=== PATIENT | female | born 1995 | race American Indian/Alaskan Native ===

== ENCOUNTER 2021-04-10 10:19 | Emergency (ER) | payer BC ==
--- NOTE | 2021-04-10 17:12 | Emergency Department Report ---
ED General Adult HPI - General Chief complaint: Neuro Symptoms/Deficit Stated complaint: FEET NUMBNESS/TINGLING PUI?: No Time Seen by Provider: 04/10/21 16:54 Source: patient, RN notes reviewed Mode of arrival: Ambulatory Limitations: No Limitations - History of Present Illness Initial comments: The patient was evaluated in the emergency department for symptoms described in the history of present illness. He/she was evaluated in the context of the global COVID-19 pandemic, which necessitated consideration that the patient m ight be at risk for infection with the virus that causes COVID-19. Institutional protocols and algorithms that pertain to the evaluation of patients at risk for COVID-19 are in a state of rapid change based on information released by regulatory bodies including the CDC and federal and state organizations. These policies and algorithms were followed during the patient's care in the emergency department. Please note that these policies, procedures and recommendations changed on a rapid basis. Primary CARE doctor: Penelope Meeks The patient is a 25-year-old female. She is not known to myself previously. She reports that she is not . She denies chronic medical history, with the exception of daily cannabis use and scoliosis. She has a very distant history of trichomoniasis in 2013. She reports that she is sexually active with one male partner, monogamous, and does not use barrier protection. The patient presents to the ER today with a primary complaint of painless tingling in her bilateral feet and forearms. Today is day 3/4 of symptoms. She states that the sensation of tingling started on her bilateral great toes, moved onto the bilateral plantar aspects of her feet, then moved to the lateral aspects of her bilateral lower extremities, moved approximately, and then onto the medial side of her thighs. Then, yesterday, she developed subjective sensation of tingling in her bilateral forearms, while sparing the hands, and arms. She denies headache, neck pain, chest pain, abdominal pain, shortness of breath, dysuria, bladder or bowel retention, incontinence, saddle anesthesia, and intravenous drug use. She does endorse a painless hyperpigmentation and rash on the bilateral plantar aspect of her feet, and great toes. She denies joint pain, sore throat, and fever. -: Gradual, days(s) Location: left, right, upper extremity, lower extremity Radiation: extremity Consistency: intermittent Improves with: none Worsens with: none Associated Symptoms: denies other symptoms, rash - Related Data Allergies Allergy/AdvReac Type Severity Reaction Status Date / Time No Known Allergies Allergy Unverified 04/10/21 10:48 ED Review of Systems ROS: Stated complaint: FEET NUMBNESS/TINGLING Other details as noted in HPI Comment: All other systems reviewed and negative Skin: rash Neurological: numbness ED Past Medical Hx - Past Medical History Additional medical history: SCOLIOSIS - Surgical History Additional Surgical History: SCOLIOSIS ED Physical Exam - General Limitations: No Limitations General appearance: alert, in no apparent distress - Head Head exam: Present: atraumatic, normocephalic - Eye Eye exam: Present: normal appearance, PERRL, EOMI, other (Visual acuity intact to finger counting, color perception, reading at a close distance). Absent: nystagmus - ENT ENT exam: Present: normal exam, normal orophraynx, mucous membranes moist, normal external ear exam - Neck Neck exam: Present: normal inspection, full ROM. Absent: tenderness, meningismus - Respiratory Respiratory exam: Present: normal lung sounds bilaterally. Absent: respiratory distress, wheezes, rales, rhonchi, stridor, accessory muscle use, decreased breath sounds, prolonged expiratory - Cardiovascular Cardiovascular Exam: Present: regular rate, normal rhythm, normal heart sounds. Absent: bradycardia, tachycardia, irregular rhythm, systolic murmur, diastolic murmur, rubs, gallop - GI/Abdominal GI/Abdominal exam: Present: soft. Absent: distended, tenderness, guarding, rebound, rigid, pulsatile mass - Extremities Exam Extremities exam: Present: normal inspection, full ROM, other (2+ pulses noted in the bilateral upper and lower extremities. There is no palpable cord. negative Homans sign. Muscular compartments are soft. The pelvis is stable.). Absent: pedal edema, calf tenderness - Back Exam Back exam: Present: normal inspection, full ROM. Absent: tenderness, CVA tenderness (R), CVA tenderness (L), paraspinal tenderness, vertebral tenderness - Neurological Exam Neurological exam: Present: alert, oriented X3, normal gait, reflexes normal (Downgoing plantar reflexes bilaterally.), other (No facial droop. Tongue midline. Extraocular movements intact bilaterally. Facial sensation intact to light touch in V1, V2, V3 distribution bilaterally. 5 and a 5 strength in 4 extremities. Sensation intact to light touch in 4 extremities.). Absent: motor sensory deficit (Sensation is intact to light touch, pinch and proprioception in the bilateral upper and lower extremities) - Psychiatric Psychiatric exam: Present: normal affect, normal mood - Skin Skin exam: Present: warm, dry, intact, normal color, other (On the bilateral plantar aspect of the great toe, and plantar aspect of the distal feet, hyperpigmented macules noted, approximately 2 to 3 per foot. They are nontender. They are not on the hand.). Absent: rash ED Course Vital Signs 04/10/21 10:49 Temperature 99.6 F Pulse Rate 77 Respiratory 18 Rate Blood Pressure 141/74 O2 Sat by Pulse 99 Oximetry ED Medical Decision Making - Lab Data Vital Signs 04/10/21 10:49 Temperature 99.6 F Pulse Rate 77 Respiratory 18 Rate Blood Pressure 141/74 O2 Sat by Pulse 99 Oximetry - Medical Decision Making Differential diagnosis, including but not limited to: Peripheral neuropathy, nonspecific rash, encounter for medical screening examination. Assessment and plan: 25-year-old female, who was afebrile, with reassuring vital signs, clinically sober, with a GCS of 15, NIH score of 0, without any obvious demonstrable motor or sensory deficits, who walks with a steady gait, with no midline spinal tenderness, with nontender macular rash on the bilateral plantar aspect of her great toe, and distal feet. Complaint 1, subjective change in sensation. Counseled to discontinue marijuana consumption. Counseled to follow-up with outpatient primary care or neurologist. Her history and physical do not suggest the need for emergent imaging at this time. Specifically, there is no clinical or historical indication of epidural compression syndrome, or spinal epidural abscess. Complete #2, painless rash, with scant hyperpigmented macules on her bilateral great toes and feet. No associated rash on her hands. No joint pain or other rash. Sexually monogamous with one partner. Unlikely to be STI. Supportive care, outpatient follow-up. This patient does not appear to have an emergent medical condition at this time. She may follow-up with her outpatient primary care doctor or neurologist. Return precautions are reviewed. Questions answered, patient articulated und erstanding. Critical care attestation.: If time is entered above; I have spent that time in minutes in the direct care of this critically ill patient, excluding procedure time. ED Disposition Clinical Impression: Encounter for medical screening examination, History of marijuana use, Rash of foot, Dysesthesia of multiple sites Disposition: 01 HOME / SELF CARE / HOMELESS Is pt being admited?: No Does the pt Need Aspirin: No Condition: Good Instructions: Paresthesia, Rash, Adult, [id number] Additional Instructions: Recommend the patient discontinue marijuana consumption. Recommend that patient follow-up with a neurologist or primary care doctor within 3 to 4 weeks. For the patient's convenience, a number of local neurology specialist, as well as contact information for her primary care doctor have been listed. Please return to the emergency room right away with fever, weakness, bladder or bowel retention/incontinence, anesthesia/numbness over the genitals and/or rectum, or any new, worsened or different symptoms not present on the initial emergency room evaluation peer Local neurology specialists include the following providers: Dr Jaiden Ruffin Referrals: [facility] [Provider Group] - 3-5 Days TAMAR RUFFIN MD [Referring] - 3-5 Days ANTONINO SAUCEDO MD [Staff Physician] - 3-5 Days Forms: Work/School Release Form(ED)
[2021-04-10 17:40] VITALS: BP 110/69
== END 2021-04-10 17:39 | disposition home or self-care (01) ==
LOC: ED 10:19
DX: R20.8 Other disturbances of skin sensation (principal); Z13.9 Encounter for screening, unspecified; R21 Rash and other nonspecific skin eruption; F15.90 Other stimulant use, unspecified, uncomplicated; M41.9 Scoliosis, unspecified; Z98.890 Other specified postprocedural states
CPT/HCPCS: 99282